=== PATIENT | male | born 1985 | race Caucasian/White ===

== ENCOUNTER → 2021-08-17 | Outpatient (CLI) | payer OTHER | END | disposition home or self-care (01) | LOC: LABWHC1 12:47 | PROVIDERS: ATTEND Family Medicine | DX: Z20.822 Contact with and (suspected) exposure to COVID-19 (principal); R50.9 Fever, unspecified | CPT/HCPCS: U0003; C9803; U0005 ==

== ENCOUNTER → 2023-11-21 | Outpatient (CLI) | payer OTHER ==
--- NOTE | 2023-11-21 12:59 | XR ---
EXAMINATION TYPE: XR chest 2V DATE OF EXAM: 11/21/2023 COMPARISON: NONE HISTORY: Chest pain TECHNIQUE: Frontal and lateral views of the chest are obtained. FINDINGS: There is no focal air space opacity. No evidence for pneumothorax. No pleural effusion. Right suprahilar nodular density could reflect a vessel seen on end however consider CT chest to rule out nodule. The cardiac silhouette size is within normal limits. The osseous structures are grossly intact. IMPRESSION: 1. Right suprahilar nodular density could reflect a vessel seen on end however consider CT chest to rule out nodule.
== END | disposition home or self-care (01) ==
LOC: RADXRMAIN 12:41
PROVIDERS: ATTEND Family Medicine
DX: R91.1 Solitary pulmonary nodule (principal)
CPT/HCPCS: 71046

== ENCOUNTER → 2024-01-30 | Outpatient (CLI) | payer OTHER ==
--- NOTE | 2024-01-30 10:45 | CT ---
EXAMINATION TYPE: CT chest w con CT DLP: 501 mGycm, Automated exposure control for dose reduction was used. DATE OF EXAM: 01/30/2024 10:23 AM COMPARISON: CT 11/21/2022. CLINICAL INDICATION:Male, 38 years old with history of R93.89 abnormal findings; PHH, abnormal findin gs, lung nodule TECHNIQUE: Multiple axial images were obtained through the chest. Sagittal and coronal reformats were created for review. Contrast used:100 mL of Isovue 300 with IV Contrast (None if empty) Oral contrast used: (None if empty) FINDINGS: LUNGS/ PLEURA: No airspace opacities or mass identified. No focal consolidation, pneumothorax present . AIRWAY: Patent and unremarkable. HEART: Size within normal limits. MEDIASTINUM: No gross evidence of adenopathy. Dilated esophagus extending throughout the mediastinum. VASCULATURE: No aortic aneurysm. MUSCULOSKELETAL: No acute osseous abnormalities SOFT TISSUES/LYMPH NODES: Unremarkable. LOWER NECK: No significant findings. UPPER ABDOMEN: No significant findings. IMPRESSION: Resolution of prior airspace consolidation. No suspicious masses. Findings suggest airspace disease o n prior. Patulous dilated esophagus correlate for esophagitis/reflux findings can be seen in the setting of sc leroderma. Correlate for cirrhosis of the gastroesophageal junction. Follow up recommendations for incidental pulmonary nodules, if there are any, are per [employer] or [employer]. [email or web address].org/articles/[email or web address]?lang=us
== END | disposition home or self-care (01) ==
LOC: RADCTMAIN 09:11
PROVIDERS: ATTEND Family Medicine
DX: K22.89 Other specified disease of esophagus (principal); R93.89 Abnormal findings on diagnostic imaging of other specified body structures
CPT/HCPCS: 71260; Q9967